=== PATIENT | male | born 1960 | race Caucasian/White ===

== ENCOUNTER 2023-01-25 17:14 | Outpatient (REF) | payer BC, SELFPAY ==
[2023-01-25 22:37] LABS: C Diff PCR Negative (Negative)
[2023-01-27 12:15] LABS: Campylobacter PCR Negative (Negative); Salmonella PCR Negative (Negative); Shiga Toxin PCR Negative (Negative); Shigella/Enteroinvasive Ecoli Negative (Negative)
== END 2023-01-25 17:15 | disposition home or self-care (01) ==
LOC: NCHCN 17:14
PROVIDERS: Visit Provider Registered Nurse
DX: R19.7 Diarrhea, unspecified (principal)
CPT/HCPCS: 87329; 87493; 87505; 83630; 87177

== ENCOUNTER 2023-01-26 13:32 | Outpatient (REF) | payer BC, SELFPAY | END 2023-01-26 13:33 | disposition home or self-care (01) | LOC: NCHCN 13:32 | PROVIDERS: Visit Provider Family Medicine | DX: R19.7 Diarrhea, unspecified (principal) | CPT/HCPCS: 87177 ==

== ENCOUNTER 2023-01-27 18:13 | Outpatient (REF) | payer BC, SELFPAY | END 2023-01-27 18:14 | disposition home or self-care (01) | LOC: NCHCN 18:13 | PROVIDERS: Visit Provider Family Medicine | DX: R19.7 Diarrhea, unspecified (principal) | CPT/HCPCS: 87177 ==